=== PATIENT | female | born 1950 | race Caucasian/White ===

== ENCOUNTER → 2016-08-25 | Day surgery (SDC) | payer OTHER ==
[~2016-08-25] MED LIST: ASPI-482 PO; ATOR40TA59 PO; CELE100C PO; CYCL1DRO EACHEYE; DOXY50CA PO; FURO-69 PO; GLIP5TAB10 PO; IBUP200T77 PO; IV RINGERS,LACTATED 1000ML 1,000 ML IV SCH; LEVO125T5 PO; LISI-334 PO; METF10002 PO; METO-269 PO; OMEG1CAP30 PO; OMEG500C PO; OXYC-323 PO; POTA20TA4 PO; PROPOFOL 40 ML IV ONE; WARF5TAB7 PO
[2016-08-25 13:36] VITALS: BP 186/76
== END | disposition home or self-care (01) ==
LOC: ENDOS 11:17
PROVIDERS: ATTEND Internal Medicine Gastroenterology
DX: K64.0 First degree hemorrhoids (principal); K57.30 Diverticulosis of large intestine without perforation or abscess without bleeding; K29.50 Unspecified chronic gastritis without bleeding; E78.00 Pure hypercholesterolemia, unspecified; I10 Essential (primary) hypertension; E66.9 Obesity, unspecified; M19.90 Unspecified osteoarthritis, unspecified site; E11.9 Type 2 diabetes mellitus without complications; E03.9 Hypothyroidism, unspecified; Z98.51 Tubal ligation status; Z96.653 Presence of artificial knee joint, bilateral
CPT/HCPCS: 43235; 45378; G0500; J2704

== ENCOUNTER 2016-09-30 17:37 | Inpatient (IN) | payer OTHER ==
[~2016-09-30] VITALS: Ht 154.9 cm; Wt 109.9 kg
[~2016-09-30 17:37] MED LIST changes: -IV RINGERS,LACTATED 1000ML 1,000 ML IV SCH; +METF-620 PO; -METF10002 PO; -PROPOFOL 40 ML IV ONE
[2016-09-30 20:10] VITALS: BP 156/82
[2016-09-30] MEDS ORDERED: RIVA20TA2 PO (20:51)
[2016-09-30] MEDS ORDERED: METO-269 PO (20:51)
[2016-09-30] MEDS ORDERED: LOSA1TAB17 PO (20:52)
[2016-09-30] MEDS ORDERED: ASPI81TA2 PO (20:53)
[2016-09-30] MEDS ORDERED: LOTE5DRO2 EACHEYE (20:54)
[2016-09-30] MEDS ORDERED: CARB15DR3 EACHEYE (20:54)
[2016-09-30] MEDS ORDERED: PROCHLORPERAZINE 10 MG/2 ML VIAL. IV PRN (21:15)
[2016-09-30] MEDS ORDERED: ZOLPIDEM 5 MG TABLET. PO PRN (21:15)
[2016-09-30] MEDS ORDERED: ACETAMINOPHEN 325 MG TABLET. PO PRN (21:15)
[2016-09-30] MEDS ORDERED: LACTULOSE 20 GM/30 ML SOLUTION. PO PRN (21:15)
[2016-09-30] MEDS ORDERED: ONDANSETRON PF 4 MG/2 ML VIAL. IV PRN (21:15)
[2016-09-30] MEDS ORDERED: MAG HYDROX/ALUMINUM HYD/SIMETH 30 ML ORAL.SUSP PO PRN (21:15)
[2016-09-30] MEDS ORDERED: MAGNESIUM HYDROXIDE 2,400 MG/30 ML ORAL.SUSP. PO PRN (21:15)
[2016-09-30] MEDS ORDERED: BISACODYL 10 MG SUPP.RECT. PR PRN (21:15)
[2016-09-30] MEDS ORDERED: CALCIUM CARBONATE 500 MG TAB.CHEW PO PRN (21:15)
[2016-09-30] MEDS ORDERED: MORPHINE SULFATE 2 MG/ML DISP.SYRIN. IV PRN (21:15)
[2016-09-30] MEDS ORDERED: IV NORMAL SALINE 1000ML BAG 1,000 ML IV SCH (21:15)
[2016-09-30] MEDS ORDERED: PROCHLORPERAZINE 25 MG SUPP.RECT. PR PRN (21:15)
[2016-09-30] MEDS ORDERED: oxyCODONE IR 5 MG TABLET PO PRN ×2 (21:15)
[2016-09-30] MEDS: LOTEPREDNOL ETAB 0.5% OPHTH SUSPENSION 5ML BOTTLE. OU SCH (22:03)
[2016-09-30] MEDS: POLYVINYL ALCOHOL 1.4% OPHTH SOLUTION 15ML BOTTLE. OU SCH (22:03)
[2016-09-30] MEDS: cycloSPORINE 0.05% OPTH 1 DROP DROPERETTE OU SCH (22:03)
[2016-09-30] MEDS: METOPROLOL SUCC 24HR ER 50 MG TAB.ER.24H. PO SCH (22:05)
[2016-09-30] MEDS: ATORVASTATIN CALCIUM 20 MG TABLET PO SCH (22:05)
[2016-09-30 22:19] VITALS: BP 154/72
[2016-10-01 03:00] VITALS: BP 132/61
[2016-10-01 06:14] LABS: BASO % 1 % (0-3); EOS % 8 % (0-3); HEMATOCRIT 39.1 % (36.0-47.0); LYMPH # 1.6 x10^3/uL (1.0-4.8); LYMPH % 36 % (24-48); MEAN CORPUSCULAR HEMOGLOBIN 31 pg (25-35); MEAN CORPUSCULAR HGB CONC 33 g/dL (31-37); MEAN CORPUSCULAR VOLUME 94 fL (79-100); MONO % 15 % (0-9); NEUT % 40 % (31-73); PLATELET COUNT 203 x10^3/uL (140-400); RED BLOOD COUNT 4.16 x10^6/uL (3.50-5.40); RED CELL DISTRIBUTION WIDTH 12.9 % (11.5-14.5); WHITE BLOOD COUNT 4.3 x10^3/uL (4.0-11.0)
[2016-10-01] MEDS: LEVOTHYROXINE 125 MCG TABLET PO SCH (06:18)
[2016-10-01] MEDS: PANTOPRAZOLE IV PUSH 40 MG VIAL. IVP SCH (06:18)
[2016-10-01 06:25] LABS: INR 2.4 (0.8-1.1); PROTHROMBIN TIME PATIENT 24.8 SEC (11.7-14.0)
[2016-10-01 06:32] LABS: ALBUMIN 2.9 g/dL (3.4-5.0); ALBUMIN/GLOBULIN RATIO 0.7 (1.0-1.7); CALCIUM 8.7 mg/dL (8.5-10.1); GFR 55.5; MAGNESIUM 1.7 mg/dL (1.8-2.4); PHOSPHORUS 4.5 mg/dL (2.6-4.7); POTASSIUM 3.1 mmol/L (3.5-5.1); TOTAL BILIRUBIN 0.8 mg/dL (0.2-1.0); TOTAL PROTEIN 7.1 g/dL (6.4-8.2)
[2016-10-01 07:00] VITALS: BP 141/64
[2016-10-01] MEDS: hydroCHLOROthiazide 25 MG TABLET PO SCH (08:56)
[2016-10-01] MEDS: cycloSPORINE 0.05% OPTH 1 DROP DROPERETTE OU SCH ×2 (08:56→20:39)
[2016-10-01] MEDS: METOPROLOL SUCC 24HR ER 50 MG TAB.ER.24H. PO SCH ×2 (08:56→20:38)
[2016-10-01] MEDS: OMEGA-3 FATTY ACIDS/FISH OIL 1,000 MG CAPSULE. PO SCH (08:56)
[2016-10-01] MEDS: LOTEPREDNOL ETAB 0.5% OPHTH SUSPENSION 5ML BOTTLE. OU SCH ×2 (08:57→20:39)
[2016-10-01] MEDS: POTASSIUM CHLORIDE 10MEQ 100 ML IV SCH ×2 (10:30→11:30)
[2016-10-01 11:00] VITALS: BP 144/78
--- NOTE | 2016-10-01 12:41 | PDOC1 ---
History and Physical Past Medical History Cardiovascular: HTN, Hyperlipidemia Psych: Depression Endocrine: Diabetes, Hypothyroidism Family History Family History: Cancer, Diabetes, Heart Disease Social History ALCOHOL: none Drugs: None Current Medications Current Medications Current Medications Medications (Trade) Dose Ordered Sig/Syd Start Time Stop Time Status Last Admin Dose Admin Acetaminophen (Tylenol) 650 mg PRN Q6HRS PRN 09/30/16 21:15 Al Hydroxide/Mg Hydroxide (Mylanta Plus Xs) 30 ml PRN Q3HRS PRN 09/30/16 21:15 Artificial Tears (Artificial Tears) 1 drop HS 09/30/16 21:30 09/30/16 22:03 1 DROP Atorvastatin Calcium (Lipitor) 20 mg HS 09/30/16 21:30 09/30/16 22:05 20 MG Bisacodyl (Dulcolax Supp) 10 mg PRN DAILY PRN 09/30/16 21:15 Calcium Carbonate/ Glycine (Tums) 500 mg PRN Q3HRS PRN 09/30/16 21:15 Cyclosporine (Restasis) 1 drop BID 09/30/16 21:30 10/01/16 08:56 1 DROP Fish Oil (Fish Oil) 1,000 mg DAILY 10/01/16 09:00 10/01/16 08:56 1,000 MG Hydrochlorothiazide (Hydrodiuril) 25 mg DAILY 10/01/16 09:00 10/01/16 08:56 25 MG Lactulose 20 gm PRN Q12HR PRN 09/30/16 21:15 Levothyroxine Sodium (Synthroid) 125 mcg DAILY06 10/01/16 06:00 10/01/16 06:18 125 MCG Loteprednol Etabonate (Lotemax) 1 drop BID 09/30/16 21:30 10/01/16 08:57 1 DROP Magnesium Hydroxide (Milk Of Magnesia) 2,400 mg PRN Q12HR PRN 09/30/16 21:15 Metoprolol Succinate (Toprol Xl) 50 mg BID 09/30/16 21:30 10/01/16 08:56 50 MG Morphine Sulfate 1 mg PRN Q1HR PRN 09/30/16 21:15 Ondansetron HCl (Zofran) 4 mg PRN Q6HRS PRN 09/30/16 21:15 Oxycodone HCl (Roxicodone) 5 mg PRN Q4HRS PRN 09/30/16 21:15 Pantoprazole Sodium (Protonix Vial) 40 mg DAILYAC 10/01/16 07:30 10/01/16 06:18 40 MG Potassium Chloride 100 ml @ 100 mls/hr Q1H 10/01/16 10:30 10/01/16 12:29 DC 10/01/16 10:30 100 MLS/HR Prochlorperazine (Compazine) 25 mg PRN Q12HR PRN 09/30/16 21:15 Prochlorperazine Edisylate (Compazine) 10 mg PRN Q6HRS PRN 09/30/16 21:15 Sodium Chloride 1,000 ml @ 80 mls/hr [id number] 09/30/16 21:15 10/01/16 09:44 DC 09/30/16 22:05 80 MLS/HR Zolpidem Tartrate (Ambien) 5 mg PRN QHS PRN 09/30/16 21:15 Allergies Allergies Allergies Coded Allergies Type Severity Reaction Last Updated Verified niacin Adverse Reaction Severe TREMORS 08/25/16 Yes procaine Adverse Reaction Severe GUMS SWELLED AFTER DENTAL NOVOCAINE 08/25/16 Yes ROS Review of System CONSTITUTIONAL: No fever or chills EYES: No recent changes SKIN: No rash or itching CARDIOVASCULAR: No chest pain, syncope, palpitations, or edema RESPIRATORY: No SOB or cough GASTROINTESTINAL: No nausea, vomiting or abdominal pain but blood in stools, clotted and bright NEUROLOGICAL: No headaches or weakness ENDOCRINE: No cold or heat intolerance GENITOURINARY: No urgency or frequency of urination MUSCULOSKELETAL: No back pain or joint pain LYMPHATICS: No enlarged lymph nodes PSYCHIATRIC: No anxiety or depression Physical Exam Physical Exam GEN.: No apparent distress. Alert and oriented. HEENT: Head is normocephalic, atraumatic NECK: Supple. LUNGS: Clear to auscultation. HEART: RRR, S1, S2 present. Peripheral pulses intact ABDOMEN: Soft, nontender. Positive bowel sounds. EXTREMITIES: Without any cyanosis. NEUROLOGIC: Normal speech, normal tone PSYCHIATRIC: Normal affect, normal mood. SKIN: No ulcerations Vitals Vitals Vital Signs Date Time Temp Pulse Resp B/P (MAP) Pulse Ox O2 Delivery O2 Flow Rate FiO2 10/01/16 11:00 96.8 66 19 144/78 (100) 96 Room Air 96.8 Labs Labs Laboratory Tests Test 10/01/16 05:15 White Blood Count 4.3 x10^3/uL (4.0-11.0) Red Blood Count 4.16 x10^6/uL (3.50-5.40) Hemoglobin 13.0 g/dL (12.0-15.5) Hematocrit 39.1 % (36.0-47.0) Mean Corpuscular Volume 94 fL (79-100) Mean Corpuscular Hemoglobin 31 pg (25-35) Mean Corpuscular Hemoglobin Concent 33 g/dL (31-37) Red Cell Distribution Width 12.9 % (11.5-14.5) Platelet Count 203 x10^3/uL (140-400) Neutrophils (%) (Auto) 40 % (31-73) Lymphocytes (%) (Auto) 36 % (24-48) Monocytes (%) (Auto) 15 % (0-9) Eosinophils (%) (Auto) 8 % (0-3) Basophils (%) (Auto) 1 % (0-3) Neutrophils # (Auto) 1.7 x10^3uL (1.8-7.7) Lymphocytes # (Auto) 1.6 x10^3/uL (1.0-4.8) Monocytes # (Auto) 0.7 x10^3/uL (0.0-1.1) Eosinophils # (Auto) 0.3 x10^3/uL (0.0-0.7) Basophils # (Auto) 0.0 x10^3/uL (0.0-0.2) Prothrombin Time 24.8 SEC (11.7-14.0) Prothromb Time International Ratio 2.4 (0.8-1.1) Sodium Level 144 mmol/L (136-145) Potassium Level 3.1 mmol/L (3.5-5.1) Chloride Level 105 mmol/L (98-107) Carbon Dioxide Level 28 mmol/L (21-32) Anion Gap 11 (6-14) Blood Urea Nitrogen 20 mg/dL (7-20) Creatinine 1.0 mg/dL (0.6-1.0) Estimated GFR (Cockcroft-Gault) 55.5 BUN/Creatinine Ratio 20 (6-20) Glucose Level 88 mg/dL (70-99) Calcium Level 8.7 mg/dL (8.5-10.1) Phosphorus Level 4.5 mg/dL (2.6-4.7) Magnesium Level 1.7 mg/dL (1.8-2.4) Total Bilirubin 0.8 mg/dL (0.2-1.0) Aspartate Amino Transf (AST/SGOT) 39 U/L (15-37) Alanine Aminotransferase (ALT/SGPT) 37 U/L (14-59) Alkaline Phosphatase 65 U/L (46-116) Total Protein 7.1 g/dL (6.4-8.2) Albumin 2.9 g/dL (3.4-5.0) Albumin/Globulin Ratio 0.7 (1.0-1.7) Laboratory Tests Test 10/01/16 05:15 White Blood Count 4.3 x10^3/uL (4.0-11.0) Red Blood Count 4.16 x10^6/uL (3.50-5.40) Hemoglobin 13.0 g/dL (12.0-15.5) Hematocrit 39.1 % (36.0-47.0) Mean Corpuscular Volume 94 fL (79-100) Mean Corpuscular Hemoglobin 31 pg (25-35) Mean Corpuscular Hemoglobin Concent 33 g/dL (31-37) Red Cell Distribution Width 12.9 % (11.5-14.5) Platelet Count 203 x10^3/uL (140-400) Neutrophils (%) (Auto) 40 % (31-73) Lymphocytes (%) (Auto) 36 % (24-48) Monocytes (%) (Auto) 15 % (0-9) Eosinophils (%) (Auto) 8 % (0-3) Basophils (%) (Auto) 1 % (0-3) Neutrophils # (Auto) 1.7 x10^3uL (1.8-7.7) Lymphocytes # (Auto) 1.6 x10^3/uL (1.0-4.8) Monocytes # (Auto) 0.7 x10^3/uL (0.0-1.1) Eosinophils # (Auto) 0.3 x10^3/uL (0.0-0.7) Basophils # (Auto) 0.0 x10^3/uL (0.0-0.2) Prothrombin Time 24.8 SEC (11.7-14.0) Prothromb Time International Ratio 2.4 (0.8-1.1) Sodium Level 144 mmol/L (136-145) Potassium Level 3.1 mmol/L (3.5-5.1) Chloride Level 105 mmol/L (98-107) Carbon Dioxide Level 28 mmol/L (21-32) Anion Gap 11 (6-14) Blood Urea Nitrogen 20 mg/dL (7-20) Creatinine 1.0 mg/dL (0.6-1.0) Estimated GFR (Cockcroft-Gault) 55.5 BUN/Creatinine Ratio 20 (6-20) Glucose Level 88 mg/dL (70-99) Calcium Level 8.7 mg/dL (8.5-10.1) Phosphorus Level 4.5 mg/dL (2.6-4.7) Magnesium Level 1.7 mg/dL (1.8-2.4) Total Bilirubin 0.8 mg/dL (0.2-1.0) Aspartate Amino Transf (AST/SGOT) 39 U/L (15-37) Alanine Aminotransferase (ALT/SGPT) 37 U/L (14-59) Alkaline Phosphatase 65 U/L (46-116) Total Protein 7.1 g/dL (6.4-8.2) Albumin 2.9 g/dL (3.4-5.0) Albumin/Globulin Ratio 0.7 (1.0-1.7) VTE Prophylaxis Ordered VTE Prophylaxis Devices: Contraindicated VTE Pharmacological Prophylaxi: Contraindicated WENDY ROBLEDO MD October 01, 2016 12:41
[2016-10-01] MEDS ORDERED: MAGNESIUM SULFATE 2GM 50 ML IV ONE (13:00)
[2016-10-01 14:06] LABS: HEMATOCRIT 40.8 % (36.0-47.0); HEMOGLOBIN 13.7 g/dL (12.0-15.5); RED BLOOD COUNT 4.34 x10^6/uL (3.50-5.40)
[2016-10-01 19:00] VITALS: BP 154/77
--- NOTE | 2016-10-01 19:27 | RAD ---
Radionuclide GI bleeding scan, 10/01/2016: HISTORY Bloody stools The study was performed utilizing 27 millicuries of technetium 99 M and a labeled red blood cell technique. Imaging obtained out to 1 hour shows no abnormal accumulation of activity in the abdomen or pelvis. Normal urinary tract activity is seen. IMPRESSION Negative radionuclide GI bleeding scan. Electronically signed by: Yifan Pandya MD (October 01, 2016 16:11:56)
[2016-10-01] MEDS: ATORVASTATIN CALCIUM 20 MG TABLET PO SCH (20:38)
[2016-10-01] MEDS: POLYVINYL ALCOHOL 1.4% OPHTH SOLUTION 15ML BOTTLE. OU SCH (20:39)
[2016-10-01 22:16] LABS: HEMATOCRIT 40.2 % (36.0-47.0); HEMOGLOBIN 13.7 g/dL (12.0-15.5); RED BLOOD COUNT 4.32 x10^6/uL (3.50-5.40); WHITE BLOOD COUNT 3.9 x10^3/uL (4.0-11.0)
[2016-10-01 23:00] VITALS: BP 169/68
--- NOTE | 2016-10-02 01:42 | CONS ---
DATE OF CONSULTATION: 10/01/2016 REQUESTING PHYSICIAN: Dr. Katz. PRIMARY CARE PHYSICIAN: Dr. Mariel Garcia. REASON FOR CONSULTATION: GI bleed. HISTORY OF PRESENT ILLNESS: This is a 65-year-old female who was transferred from [facility] [place] after having a GI bleed. She reports blood clots in her bowel movement. She had an EGD and colonoscopy by Dr. Heaton on 08/29/2016. She reports that she was told she did not need a colonoscopy for 10 more years. Otherwise, she has been told that she has gallstones and has a sluggish stomach on gastric emptying. She has been scheduled for gallbladder surgery with Dr. Waters. She is scheduled for a 2-day stress test this Monday or by ____. She states that she was placed on Xarelto for a blood clot in her lung. Shortly after, she began to notice clots in her bowel movements. She states that she has a bowel movement with every meal. This is unchanged from previous. Otherwise, she denies any nausea or vomiting. She states that she has generalized abdominal pain at the site of her hernia. PAST MEDICAL HISTORY: Significant for: 1. TIA. 2. Coronary artery disease. 3. Cardiac characterization 4. Hypercholesterolemia. 5. Hypertension. 6. Sleep apnea. 7. Diverticulosis. 8. Gallbladder disease. 9. Obesity. 10. Tubal ligation. 11. Carpal tunnel syndrome. 12. ____ surgery. 13. Joint replacement. 14. Down syndrome. MEDICATIONS: Currently she is on: 1. Potassium. 2. Hydrochlorothiazide. 3. Fish oil. 4. Protonix. 5. Levothyroxine. 6. Toprol. 7. Artificial tears. 8. Lotemax. 9. Restasis. 10. Lipitor. 11. Dulcolax. 12. Lactulose. 13. Milk of magnesia. 14. Tylenol. 15. Roxicodone 16. Morphine. 17. Ambien. 18. Tums. 19. Mylanta. 20. Compazine. 21. Zofran. ALLERGIES: 1. NIACIN. 2. PROCAINE. PHYSICAL EXAMINATION: VITAL SIGNS: Temperature is 96.8, blood pressure 144/78, heart rate 66. GENERAL: She is an obese female in no apparent distress. HEENT: Oropharynx is clear. CARDIOVASCULAR: S1, S2. LUNGS: Have decreased breath sounds anteriorly. ABDOMEN: Does have normoactive bowel sounds, is soft and she is diffusely tender to palpation. EXTREMITIES: No edema. NEUROLOGIC: She is awake, alert and oriented x 3. LABORATORY DATA: White blood cell count of 4.2 with a hemoglobin of 13, MCV of 94, platelets are at 203. Chemistries show an elevated AST at 39, but otherwise unrevealing. Her potassium is low at 3.1. Had no recent imaging. ASSESSMENT AND PLAN: GI bleed: She reports clots in her bowel movements shortly after starting Xarelto. She had both upper and lower endoscopy by Dr. Heaton on 08/29/2016. She states that these were relatively unrevealing. At this time, I will go ahead and order bleeding scan to further evaluate. ____ hold Xarelto if her hemoglobin drops precipitously. Thank you for allowing me, Dr. Heaton to participate in the care of this patient. MICHELL HEATON MD DR: CAMRON/morgan JOB#: [id number] / [id number] MARIEL Goetz MD
--- NOTE | 2016-10-02 02:00 | HP ---
ADMIT DATE: 10/01/2016 CHIEF COMPLAINT: Blood in the stool and lower GI bleeding, questionable. HISTORY OF PRESENT ILLNESS: A 65-year-old female patient who was recently diagnosed with pulmonary embolus and she was started on a blood thinner, Eliquis; however; she was noted to have bright red blood in her stool yesterday and she was transferred to hospital for continued care. Reportedly, the patient was diagnosed nearly one month ago about PE and later she had evaluation by GI, EGD and colonoscopy, both were negative and no biopsies were taken (no official report seen). Also, she was evaluated by Cardiology for her shortness of breath. She is about to get some stress test in the next couple of days. She denies any hematemesis, but she noted bright-cloted blood two times, one time today and yesterday. She denies any fever, chills or abdominal pain. No nausea or vomiting. No weight gain. PAST MEDICAL HISTORY: Please see my electronic H and P. REVIEW OF SYSTEMS: Please see my electronic H and P. PHYSICAL EXAMINATION: Please see my electronic H and P. LABORATORY FINDINGS: CBC within normal limits. Hemoglobin is 13.0. Chemistry within normal limits except magnesium 1.7. Potassium 3.1. Coagulation panel; INR is 2.4, PT is 24.8. Imaging studies not done. ASSESSMENT AND PLAN: 1. Rectal bleed, unclear etiology, questionable lower gastrointestinal bleed. 2. Hypokalemia. 3. Hypomagnesemia. 4. Recent history of pulmonary embolus on Eliquis. 5. Hypertension. 6. Hyperlipidemia. 7. Diabetes mellitus. PLAN: 1. The patient is scheduled to get nuclear medicine scan today, meanwhile we will continue to monitor her hemoglobin. Currently she is on IV Protonix drip. 2. Monitor hemoglobin q.8 hours. If the patient's hemoglobin drops to less than 8, will transfuse one or two units of blood based on the patient's clinical condition. 3. Magnesium and potassium had been replaced. 4. Holding Eliquis at this time. 5. Continue home medications, reviewed and reconciled. 6. Plan discussed with the patient and family members at bedside. All questions were answered. 7. Anticipated discharge based on clinical improvement and sub-speciality input. 8. Gastroenterology had been consulted. WENDY ROBLEDO MD DR: Falguni JOB#: [id number] / [id number] DARCY
[2016-10-02 03:00] VITALS: BP 118/76
[2016-10-02 04:35] LABS: HEMATOCRIT 38.9 % (36.0-47.0); HEMOGLOBIN 13.5 g/dL (12.0-15.5); RED BLOOD COUNT 4.27 x10^6/uL (3.50-5.40); RED CELL DISTRIBUTION WIDTH 12.7 % (11.5-14.5); WHITE BLOOD COUNT 4.1 x10^3/uL (4.0-11.0)
[2016-10-02] MEDS: LEVOTHYROXINE 125 MCG TABLET PO SCH (05:40)
[2016-10-02 07:00] VITALS: BP 93/38
[2016-10-02] MEDS: hydroCHLOROthiazide 25 MG TABLET PO SCH (08:53)
[2016-10-02] MEDS: OMEGA-3 FATTY ACIDS/FISH OIL 1,000 MG CAPSULE. PO SCH (08:53)
[2016-10-02] MEDS: METOPROLOL SUCC 24HR ER 50 MG TAB.ER.24H. PO SCH (08:53)
[2016-10-02] MEDS: LOTEPREDNOL ETAB 0.5% OPHTH SUSPENSION 5ML BOTTLE. OU SCH (08:54)
[2016-10-02] MEDS: POLYVINYL ALCOHOL 1.4% OPHTH SOLUTION 15ML BOTTLE. OU SCH (08:54)
[2016-10-02] MEDS: PANTOPRAZOLE IV PUSH 40 MG VIAL. IVP SCH (08:54)
[2016-10-02] MEDS: cycloSPORINE 0.05% OPTH 1 DROP DROPERETTE OU SCH (08:55)
--- NOTE | 2016-10-02 09:27 | PDOC3 ---
Discharge Summary Visit Information Date of Admission: October 01, 2016 Date of Discharge: October 02, 2016 Admitting Diagnosis Comment: ASSESSMENT AND PLAN: 1. Rectal bleed, unclear etiology, questionable lower gastrointestinal bleed. 2. Hypokalemia. 3. Hypomagnesemia. 4. Recent history of pulmonary embolus on Xarelto/eliquis 5. Hypertension. 6. Hyperlipidemia. 7. Diabetes mellitus. Brief Hospital Course Allergies Allergies Coded Allergies Type Severity Reaction Last Updated Verified niacin Adverse Reaction Severe TREMORS 08/25/16 Yes procaine Adverse Reaction Severe GUMS SWELLED AFTER DENTAL NOVOCAINE 08/25/16 Yes Vital Signs Vital Signs Date Time Temp Pulse Resp B/P (MAP) Pulse Ox O2 Delivery O2 Flow Rate FiO2 10/02/16 08:53 62 125/57 10/02/16 07:00 96.3 20 96 Room Air 96.3 Lab Results Laboratory Tests Test 10/01/16 05:15 10/01/16 13:55 10/01/16 22:05 10/02/16 04:00 White Blood Count 4.3 x10^3/uL (4.0-11.0) 4.0 x10^3/uL (4.0-11.0) 3.9 x10^3/uL (4.0-11.0) 4.1 x10^3/uL (4.0-11.0) Red Blood Count 4.16 x10^6/uL (3.50-5.40) 4.34 x10^6/uL (3.50-5.40) 4.32 x10^6/uL (3.50-5.40) 4.27 x10^6/uL (3.50-5.40) Hemoglobin 13.0 g/dL (12.0-15.5) 13.7 g/dL (12.0-15.5) 13.7 g/dL (12.0-15.5) 13.5 g/dL (12.0-15.5) Hematocrit 39.1 % (36.0-47.0) 40.8 % (36.0-47.0) 40.2 % (36.0-47.0) 38.9 % (36.0-47.0) Mean Corpuscular Volume 94 fL (79-100) 94 fL (79-100) 93 fL (79-100) 91 fL ( 79-100) Mean Corpuscular Hemoglobin 31 pg (25-35) 32 pg (25-35) 32 pg (25-35) 32 pg ( 25-35) Mean Corpuscular Hemoglobin Concent 33 g/dL (31-37) 34 g/dL (31-37) 34 g/dL (31-37) 35 g/dL (31-37) Red Cell Distribution Width 12.9 % (11.5-14.5) 13.0 % (11.5-14.5) 13.0 % (11.5-14.5) 12.7 % (11.5-14.5) Platelet Count 203 x10^3/uL (140-400) 203 x10^3/uL (140-400) 206 x10^3/uL (140-400) 211 x10^3/uL (140-400) Neutrophils (%) (Auto) 40 % (31-73) Lymphocytes (%) (Auto) 36 % (24-48) Monocytes (%) (Auto) 15 % (0-9) Eosinophils (%) (Auto) 8 % (0-3) Basophils (%) (Auto) 1 % (0-3) Neutrophils # (Auto) 1.7 x10^3uL (1.8-7.7) Lymphocytes # (Auto) 1.6 x10^3/uL (1.0-4.8) Monocytes # (Auto) 0.7 x10^3/uL (0.0-1.1) Eosinophils # (Auto) 0.3 x10^3/uL (0.0-0.7) Basophils # (Auto) 0.0 x10^3/uL (0.0-0.2) Prothrombin Time 24.8 SEC (11.7-14.0) Prothromb Time International Ratio 2.4 (0.8-1.1) Sodium Level 144 mmol/L (136-145) Potassium Level 3.1 mmol/L (3.5-5.1) Chloride Level 105 mmol/L (98-107) Carbon Dioxide Level 28 mmol/L (21-32) Anion Gap 11 (6-14) Blood Urea Nitrogen 20 mg/dL (7-20) Creatinine 1.0 mg/dL (0.6-1.0) Estimated GFR (Cockcroft-Gault) 55.5 BUN/Creatinine Ratio 20 (6-20) Glucose Level 88 mg/dL (70-99) Calcium Level 8.7 mg/dL (8.5-10.1) Phosphorus Level 4.5 mg/dL (2.6-4.7) Magnesium Level 1.7 mg/dL (1.8-2.4) Total Bilirubin 0.8 mg/dL (0.2-1.0) Aspartate Amino Transf (AST/SGOT) 39 U/L (15-37) Alanine Aminotransferase (ALT/SGPT) 37 U/L (14-59) Alkaline Phosphatase 65 U/L (46-116) Total Protein 7.1 g/dL (6.4-8.2) Albumin 2.9 g/dL (3.4-5.0) Albumin/Globulin Ratio 0.7 (1.0-1.7) Laboratory Tests Test 10/01/16 13:55 10/01/16 22:05 10/02/16 04:00 White Blood Count 4.0 x10^3/uL (4.0-11.0) 3.9 x10^3/uL (4.0-11.0) 4.1 x10^3/uL (4.0-11.0) Red Blood Count 4.34 x10^6/uL (3.50-5.40) 4.32 x10^6/uL (3.50-5.40) 4.27 x10^6/uL (3.50-5.40) Hemoglobin 13.7 g/dL (12.0-15.5) 13.7 g/dL (12.0-15.5) 13.5 g/dL (12.0-15.5) Hematocrit 40.8 % (36.0-47.0) 40.2 % (36.0-47.0) 38.9 % (36.0-47.0) Mean Corpuscular Volume 94 fL (79-100) 93 fL (79-100) 91 fL (79-100) Mean Corpuscular Hemoglobin 32 pg (25-35) 32 pg (25-35) 32 pg (25-35) Mean Corpuscular Hemoglobin Concent 34 g/dL (31-37) 34 g/dL (31-37) 35 g/dL (31-37) Red Cell Distribution Width 13.0 % (11.5-14.5) 13.0 % (11.5-14.5) 12.7 % (11.5-14.5) Platelet Count 203 x10^3/uL (140-400) 206 x10^3/uL (140-400) 211 x10^3/uL (140-400) Brief Hospital Course Ms. Bliss is a 65 old female recently on coumadin (eliquis) for PE (diagnosed 3 weeks ago), but 1 day [employer] [facility], hemodynamically stable, no recurrence, First episode PE, told to be on it maybe 3-6 mos,. PLanned for MPI OP by cards prior to contemplated elective GS for cholecystectomy and some bowel sx? for chronic diarrhea and hernia repair, In any case, no more bleeding , will try GI soft and if no recurrence and cleared by GI ok for home and ff up rest of her planned tests as OP,. NM scan was neg, CBC q8 - was never anemic Dc 34 mins > 70% time in room discussing plan etc Dw RN Pt seen and examined COnsultTs; gS proc: none DispO; home Discharge Information Condition at Discharge: Improved, Stable Disposition/Orders: D/C to Home Scheduled Aspirin (Aspirin), 1 TAB PO DAILY, (Reported) Atorvastatin Calcium (Atorvastatin Calcium), 20 MG PO HS, (Reported) Carboxymethylcellulos/Glycerin (Refresh Optive Eye Drops), 1 DROP EACHEYE HS, ( Reported) Cyclosporine (Restasis), 1 DROP EACHEYE BID, (Reported) Levothyroxine Sodium (Levothyroxine Sodium), 125 MCG PO DAILYAC, (Reported) Losartan/Hydrochlorothiazide (Losartan-Hctz 100-25 Mg Tab), Unknown Dose PO DAILY, (Reported) Loteprednol Etabonate (Lotemax), 1 DROP EACHEYE BID, (Reported) Metoprolol Succinate (Toprol Xl), 1 TAB PO BID, (Reported) Carver-3 Fatty Acids (Fish Oil), 1,000 MG PO DAILY, (Reported) Rivaroxaban (Xarelto), 20 MG PO DAILY, (Reported) Discontinued Medications Celecoxib (Celebrex), 1 CAP PO DAILY, (Reported) Doxycycline Hyclate (Doxycycline Hyclate), 1 CAP PO BID, (Reported) Furosemide (Lasix), 20 MG PO DAILY, (Reported) Ibuprofen (Ibuprofen), 200 MG PO DAILY PRN for INFLAMMATION, (Reported) Lisinopril (Lisinopril), 20 MG PO DAILY, (Reported) KERRI CANO MD October 02, 2016 09:27
[2016-10-02 10:00] VITALS: BP 109/45
--- NOTE | 2016-10-02 12:23 | PDOC ---
Subjective: Subjective: no bleeding. Hgb up today. Bleed scan neg Objective: Vital Signs: Vital Signs Date Time Temp Pulse Resp B/P (MAP) Pulse Ox O2 Delivery O2 Flow Rate FiO2 10/02/16 10:00 97.9 60 18 109/45 (66) 97 Room Air 97.9 Labs: Laboratory Tests Test 10/01/16 13:55 10/01/16 22:05 10/02/16 04:00 White Blood Count 4.0 x10^3/uL (4.0-11.0) 3.9 x10^3/uL (4.0-11.0) 4.1 x10^3/uL (4.0-11.0) Red Blood Count 4.34 x10^6/uL (3.50-5.40) 4.32 x10^6/uL (3.50-5.40) 4.27 x10^6/uL (3.50-5.40) Hemoglobin 13.7 g/dL (12.0-15.5) 13.7 g/dL (12.0-15.5) 13.5 g/dL (12.0-15.5) Hematocrit 40.8 % (36.0-47.0) 40.2 % (36.0-47.0) 38.9 % (36.0-47.0) Mean Corpuscular Volume 94 fL (79-100) 93 fL (79-100) 91 fL (79-100) Mean Corpuscular Hemoglobin 32 pg (25-35) 32 pg (25-35) 32 pg (25-35) Mean Corpuscular Hemoglobin Concent 34 g/dL (31-37) 34 g/dL (31-37) 35 g/dL (31-37) Red Cell Distribution Width 13.0 % (11.5-14.5) 13.0 % (11.5-14.5) 12.7 % (11.5-14.5) Platelet Count 203 x10^3/uL (140-400) 206 x10^3/uL (140-400) 211 x10^3/uL (140-400) Physical Exam: Physical Exam: GEN: NAD HEENT: OP clear CV: S1S2 without murmurs, rubs, or gallops RESP: CTAB without wheezing, rhonchi, or crackles ABD: NABS, SNT/ND EXT: No edema NEURO: AAO x 3 Assessment & Plan: Assessment : 1) GIB: resolved. Hgb increased off Xarelto. bleed scna neg Plan: okay for d/c. f/u with dr Heaton Problems: ELEUTERIO CARRILLO MD October 02, 2016 12:23
[2016-10-02 14:17] LABS: HEMOGLOBIN 13.1 g/dL (12.0-15.5); RED BLOOD COUNT 4.16 x10^6/uL (3.50-5.40); RED CELL DISTRIBUTION WIDTH 13.1 % (11.5-14.5); WHITE BLOOD COUNT 3.5 x10^3/uL (4.0-11.0)
--- NOTE | 2016-10-03 15:41 | CONS ---
DATE OF CONSULTATION: 10/01/2016 REQUESTING PHYSICIAN: Dr. Katz. PRIMARY CARE PHYSICIAN: Dr. Mariel Garcia. REASON FOR CONSULTATION: GI bleed. HISTORY OF PRESENT ILLNESS: This is a 65-year-old female who was transferred from [facility] [place] having a GI bleed. She reports blood clots in her bowel movement. She had an EGD and colonoscopy by Dr. Heaton on 08/29/2016. She reports that she was told she did not need a colonoscopy for 10 more years. Otherwise, she has been told that she has gallstones and has a sluggish stomach on gastric emptying. She has been scheduled for gallbladder surgery with Dr. Waters. She is scheduled for a 2-day stress test this Monday or by ____. She states that she was placed on Xarelto for a blood clot in her lung. Shortly after, she began to notice clots in her bowel movements. She states that she has a bowel movement with every meal. This is unchanged from previous. Otherwise, she denies any nausea or vomiting. She states that she has generalized abdominal pain at the site of her hernia. PAST MEDICAL HISTORY: Significant for: 1. TIA. 2. Coronary artery disease. 3. Cardiac characterization 4. Hypercholesterolemia. 5. Hypertension. 6. Sleep apnea. 7. Diverticulosis. 8. Gallbladder disease. 9. Obesity. 10. Tubal ligation. 11. Carpal tunnel syndrome. 12. ____ surgery. 13. Joint replacement. 14. Down syndrome. MEDICATIONS: Currently she is on: 1. Potassium. 2. Hydrochlorothiazide. 3. Fish oil. 4. Protonix. 5. Levothyroxine. 6. Toprol. 7. Artificial tears. 8. Lotemax. 9. Restasis. 10. Lipitor. 11. Dulcolax. 12. Lactulose. 13. Milk of magnesia. 14. Tylenol. 15. Roxicodone 16. Morphine. 17. Ambien. 18. Tums. 19. Mylanta. 20. Compazine. 21. Zofran. ALLERGIES: 1. NIACIN. 2. PROCAINE. PHYSICAL EXAMINATION: VITAL SIGNS: Temperature is 96.8, blood pressure 144/78, heart rate 66. GENERAL: She is an obese female in no apparent distress. HEENT: Oropharynx is clear. CARDIOVASCULAR: S1, S2. LUNGS: Have decreased breath sounds anteriorly. ABDOMEN: Does have normoactive bowel sounds, is soft and she is diffusely tender to palpation. EXTREMITIES: No edema. NEUROLOGIC: She is awake, alert and oriented x 3. LABORATORY DATA: White blood cell count of 4.2 with a hemoglobin of 13, MCV of 94, platelets are at 203. Chemistries show an elevated AST at 39, but otherwise unrevealing. Her potassium is low at 3.1. Had no recent imaging. ASSESSMENT AND PLAN: GI bleed: She reports clots in her bowel movements shortly after starting Xarelto. She had both upper and lower endoscopy by Dr. Heaton on 08/29/2016. She states that these were relatively unrevealing. At this time, I will go ahead and order bleeding scan to further evaluate. ____ hold Xarelto if her hemoglobin drops precipitously. Thank you for allowing me, Dr. Heaton to participate in the care of this patient. ELEUTERIO CARRILLO MD DR: CAMRON/morgan JOB#: [id number] / [id number] MARIEL Goetz MD
== END 2016-10-02 15:38 | disposition home or self-care (01) | DRG 378 ==
LOC: 5 NORTH 20:32
PROVIDERS: ADMIT Internal Medicine; ATTEND Internal Medicine
DX: K92.2 Gastrointestinal hemorrhage, unspecified (principal); Z68.42 Body mass index [BMI] 45.0-49.9, adult; E78.5 Hyperlipidemia, unspecified; E83.42 Hypomagnesemia; E87.6 Hypokalemia; I10 Essential (primary) hypertension; I25.10 Atherosclerotic heart disease of native coronary artery without angina pectoris; F32.9 Major depressive disorder, single episode, unspecified; G56.00 Carpal tunnel syndrome, unspecified upper limb; K57.90 Diverticulosis of intestine, part unspecified, without perforation or abscess without bleeding; E66.9 Obesity, unspecified; E03.9 Hypothyroidism, unspecified; E78.00 Pure hypercholesterolemia, unspecified; E11.9 Type 2 diabetes mellitus without complications; G47.30 Sleep apnea, unspecified; K80.20 Calculus of gallbladder without cholecystitis without obstruction; K52.9 Noninfective gastroenteritis and colitis, unspecified; Z98.51 Tubal ligation status; Z88.8 Allergy status to other drugs, medicaments and biological substances; Q90.9 Down syndrome, unspecified; Z86.711 Personal history of pulmonary embolism; Z86.73 Personal history of transient ischemic attack (TIA), and cerebral infarction without residual deficits; Z83.3 Family history of diabetes mellitus; Z79.891 Long term (current) use of opiate analgesic; Z79.899 Other long term (current) drug therapy; Z85.9 Personal history of malignant neoplasm, unspecified; Z82.49 Family history of ischemic heart disease and other diseases of the circulatory system
CPT/HCPCS: 36415; 78278; 80053; 83735; 84100; 85027; 85610; 96374; A9560; C9113; J3480; J7030; J7060

== ENCOUNTER 2016-12-01 05:44 | Inpatient (IN) | payer OTHER ==
[~2016-12-01] VITALS: Ht 157.5 cm; Wt 111.1 kg
[2016-12-01] VITALS (11 sets, daily range): BP systolic 124–171; BP diastolic 54–75
[~2016-12-01 05:44] MED LIST changes: +ASPI-630 PO; +CARB15DR3 EACHEYE; +LOSA1TAB17 PO; +LOTE5DRO2 EACHEYE; +RIVA20TA2 PO
[2016-12-01] MEDS ORDERED: PROCHLORPERAZINE 10 MG/2 ML VIAL. IV PRN (07:00)
[2016-12-01] MEDS ORDERED: MORPHINE SULFATE 2 MG/ML DISP.SYRIN. IV PRN ×2 (07:00→10:15)
[2016-12-01] MEDS ORDERED: IV RINGERS,LACTATED 1000ML 1,000 ML IV SCH (07:00)
[2016-12-01] MEDS ORDERED: ONDANSETRON PF 4 MG/2 ML VIAL. IV PRN ×2 (07:00→10:15)
[2016-12-01] MEDS ORDERED: LIDOCAINE 1% 1 ML SYRINGE. ID PRN (07:00)
[2016-12-01] MEDS ORDERED: fentaNYL PF VIAL 100 MCG/2 ML VIAL IV PRN ×2 (07:00)
[2016-12-01] MEDS ORDERED: HYDROmorphone 2 MG/ML VIAL IV PRN (07:00)
[2016-12-01] MEDS ORDERED: SURGICEL HEMOSTAT 4X8 EACH. ONE (07:15)
[2016-12-01] MEDS ORDERED: IOHEXOL 300 MG/ML 50 ML VIAL. ONE (07:15)
[2016-12-01] MEDS ORDERED: BUPIVACAINE-EPI 0.25%-1:200000 50 ML VIAL. ONE (07:15)
[2016-12-01] MEDS ORDERED: DEXAMETHASONE SOD PHOS 20 MG/5 ML VIAL. ONE (08:29)
[2016-12-01] MEDS ORDERED: fentaNYL PF VIAL 100 MCG/2 ML VIAL ONE (08:29)
[2016-12-01] MEDS ORDERED: PROPOFOL 20 ML IV ONE (08:29)
[2016-12-01] MEDS ORDERED: LIDOCAINE 2% PF Vial for OR 5 ML VIAL. ONE (08:29)
[2016-12-01] MEDS ORDERED: MIDAZOLAM HCL/PF 2 MG/2 ML VIAL. ONE (08:29)
[2016-12-01] MEDS ORDERED: ROCURONIUM 50 MG/5 ML VIAL. ONE (08:30)
[2016-12-01 08:31] LABS: INR 1.3 (0.8-1.1)
--- NOTE | 2016-12-01 08:54 | PDOC1 ---
History and Physical Date of Admission Date of Admission DATE: 12/01/16 TIME: 08:47 Identification/Chief Complaint Chief Complaint Abd pain Problems: Source Source: Patient History of Present Illness History of Present Illness 66 yo female with long history of abdominal pain. Has had EGD and colonoscopy with no source of pain. CT of the abdomen showed gallstones and small umbilical hernia. Past Medical History Cardiovascular: HTN, Hyperlipidemia Psych: Depression Musculoskeletal: Osteoarthritis Endocrine: Diabetes, Hypothyroidism Past Surgical History Past Surgical History: Tubal Ligation, No pertinent history (carpal tunnel release, rotor cuff repair) Family History Family History: Cancer, Diabetes, Heart Disease Social History ALCOHOL: none Drugs: None Current Medications Current Medications Current Medications Ondansetron HCl (Zofran) 4 mg PRN Q6HRS PRN IV NAUSEA/VOMITING; Start 12/01/16 at 07:00; Stop 12/02/16 at 06:59 Fentanyl Citrate (Fentanyl 2ml Vial) 25 mcg PRN Q5MIN PRN IV MILD PAIN; Start 12/01/16 at 07:00; Stop 12/02/16 at 06:59 Fentanyl Citrate (Fentanyl 2ml Vial) 50 mcg PRN Q5MIN PRN IV MODERATE PAIN; Start 12/01/16 at 07:00; Stop 12/02/16 at 06:59 Morphine Sulfate 1 mg PRN Q10MIN PRN IV SEVERE PAIN; Start 12/01/16 at 07:00; Stop 12/02/16 at 06:59 Ringer's Solution 1,000 ml @ 30 mls/hr Q24H IV Last administered on 12/01/16t 08:26; Start 12/01/16 at 07:00; Stop 12/01/16 at 18:59 Lidocaine HCl 2 ml PRN 1X PRN ID PRIOR TO IV START; Start 12/01/16 at 07:00; Stop 12/02/16 at 06:59 Hydromorphone HCl (Dilaudid) 0.5 mg PRN Q10MIN PRN IV SEV PAIN, Second choice; Start 12/01/16 at 07:00; Stop 12/02/16 at 06:59 Prochlorperazine Edisylate (Compazine) 5 mg PACU PRN PRN IV NAUSEA, MRX1; Start 12/01/16 at 07:00; Stop 12/02/16 at 06:59 Cefazolin Sodium/ Dextrose 50 ml @ 100 mls/hr 1X PREOP PRN IV PRIOR TO PROCEDURE; Start 12/01/16 at 06:00; Stop 12/01/16 at 18:00 Cellulose 1 each STK-MED ONCE .ROUTE ; Start 12/01/16 at 07:15; Stop 12/01/16 at 07:16; Status DC Iohexol (Omnipaque 300 Mg/ml) 50 ml STK-MED ONCE .ROUTE ; Start 12/01/16 at 07: 15; Stop 12/01/16 at 07:16; Status DC Bupivacaine HCl/ Epinephrine Bitart (Marcaine-Epi 0.25%-1:214119) 50 ml STK-MED ONCE .ROUTE ; Start 12/01/16 at 07:15; Stop 12/01/16 at 07:16; Status DC Dexamethasone Sodium Phosphate (Decadron) 20 mg STK-MED ONCE .ROUTE ; Start at 08:29; Stop 12/01/16 at 08:30; Status DC Propofol 20 ml @ As Directed STK-MED ONCE IV ; Start 12/01/16 at 08:29; Stop at 08:30; Status DC Lidocaine HCl (Lidocaine Pf 2% Vial) 5 ml STK-MED ONCE .ROUTE ; Start 12/01/16 at 08:29; Stop 12/01/16 at 08:30; Status DC Midazolam HCl (Versed) 2 mg STK-MED ONCE .ROUTE ; Start 12/01/16 at 08:29; Stop 12/01/16 at 08:30; Status DC Fentanyl Citrate (Fentanyl 2ml Vial) 100 mcg STK-MED ONCE .ROUTE ; Start at 08:29; Stop 12/01/16 at 08:30; Status DC Rocuronium [place] (Zemuron) 50 mg STK-MED ONCE .ROUTE ; Start 12/01/16 at 08:30 ; Stop 12/01/16 at 08:31; Status DC Active Scripts Active Reported Refresh Optive Eye Drops (Carboxymethylcellulos/Glycerin) 15 Ml Drops 1 Drop EACHEYE HS Lotemax (Loteprednol Etabonate) 5 Ml Drops.susp 1 Drop EACHEYE BID Losartan-Hctz 100-25 Mg Tab (Losartan/Hydrochlorothiazide) Unknown Strength Tablet Unknown Dose PO DAILY Toprol Xl (Metoprolol Succinate) 50 Mg Tab.er.24h 1 Tab PO BID Restasis (Cyclosporine) 1 Each Droperette 1 Drop EACHEYE BID Fish Oil ([place]-3 Fatty Acids) 500 Mg Capsule.dr 1,000 Mg PO DAILY Atorvastatin Calcium 40 Mg Tablet 20 Mg PO HS Levothyroxine Sodium 125 Mcg Tablet 125 Mcg PO DAILYAC Allergies Allergies: Coded Allergies: No Known Medication Allergies (Verified Allergy, Unknown, 12/01/16) niacin (Verified Adverse Reaction, Severe, TREMORS, 12/01/16) procaine (Verified Adverse Reaction, Severe, GUMS SWELLED AFTER DENTAL NOVOCAINE, 12/01/16) ROS Gastrointestinal: Yes Abdominal Pain Physical Exam General: Alert, Oriented X3, Cooperative, No acute distress HEENT: Atraumatic, PERRLA, EOMI Lungs: Clear to auscultation, Normal air movement Heart: RRR, no murmurs Abdomen: Normal bowel sounds, Soft, Other (TTP RUQ) Extremities: No clubbing, No cyanosis, No edema Skin: No significant lesion Neuro: Normal speech Psych/Mental Status: Mental status NL Vitals Vitals Vital Signs Date Time Temp Pulse Resp B/P (MAP) Pulse Ox O2 Delivery O2 Flow Rate FiO2 12/01/16 08:11 97.3 58 18 144/84 99 Room Air 97.3 Labs Labs Laboratory Tests Test 12/01/16 08:15 12/01/16 08:17 Prothrombin Time 15.0 SEC (11.7-14.0) Prothromb Time International Ratio 1.3 (0.8-1.1) Glucose (Fingerstick) 114 mg/dL (70-99) Laboratory Tests Test 12/01/16 08:15 12/01/16 08:17 Prothrombin Time 15.0 SEC (11.7-14.0) Prothromb Time International Ratio 1.3 (0.8-1.1) Glucose (Fingerstick) 114 mg/dL (70-99) Images Images as in HPI VTE Prophylaxis Ordered VTE Prophylaxis Devices: Yes VTE Pharmacological Prophylaxi: Contraindicated Assessment/Plan Assessment/Plan Cholecystitis and umbilical hernia plan L/S Cholecystectomy and umbo hernia repair. RYAN CHAVARRIA MD Dec 01, 2016 08:54
[2016-12-01] MEDS ORDERED: BUPIVACAINE MPF 0.25% 30 ML VIAL. ONE (09:11)
[2016-12-01] MEDS ORDERED: EPINEPHrine 1 MG/ML VIAL ONE (09:11)
[2016-12-01] MEDS ORDERED: ePHEDrine PF IN SALINE 50 MG/5 ML DISP.SYRIN IV ONE (09:21)
[2016-12-01] MEDS ORDERED: NEOSTIGMINE METHYLSULFATE 5 MG/5 ML SYRINGE. ONE (09:23)
[2016-12-01] MEDS ORDERED: ONDANSETRON PF 4 MG/2 ML VIAL. ONE (09:23)
[2016-12-01] MEDS ORDERED: GLYCOPYRROLATE 1 MG/5 ML VIAL. ONE (09:23)
[2016-12-01] MEDS ORDERED: DESFLURANE 61 TO 120 MINUTES IH ONE (09:45)
[2016-12-01] MEDS ORDERED: oxyCODONE/APAP 5/325 1 TAB TABLET PO PRN ×2 (10:15)
[2016-12-01] MEDS ORDERED: 0.9 % SODIUM CHLORIDE 10 ML DISP.SYRIN. IV PRN (10:15)
--- NOTE | 2016-12-01 10:19 | PDOC4 ---
Operative Note Operative Note Date: 12/01/2016 Preoperative diagnosis: Cholecystitis Operative diagnosis: Same Procedure: Laparoscopic cholecystectomy Surgeon: Jt Dictation: Patient is a 66-year-old female with several months history of right upper quadrant abdominal pain nausea especially after eating. CT scan of the abdomen showed gallstones and mildly thickened gallbladder wall. Procedure of laparoscopic cholecystectomy was explained to the patient in detail all risks benefits were discussed including bleeding infection injury to intra-abdominal contents possibly necessitating open operation alternatives to this procedure also discussed with the patient seemed understanding gave both verbal and written consent have procedure performed. Patient was taken to the operating room placed supine position general anesthesia was initiated once patient was asleep and intubated her abdomen was prepped and draped in the usual sterile fashion using ChloraPrep. An area in the left upper quadrant of the abdomen was injected with quarter percent Marcaine with epinephrine and incision was made with 11 blade scalpel and a Visiport was placed under direct visualization a pneumoperitoneum was achieved. Was noted that she had some adhesions near the umbilicus and the anterior abdomin these were taken down with sharp dissection. 35 mm ports were then placed under direct visualization two in the right upper quadrant and one in the epigastrium an 11 mm port was placed at the umbilicus under direct visualization. Was noted the gallbladder had quite a few adhesions to the omentum and these were taken down with blunt dissection the dome of the gallbladder was then grasped retracted cephalad the infundibulum of the gallbladder was grasped retracted laterally exposing the triangle. The adherent tissues at the triangle were taken down with blunt dissection exposing the cystic duct and cystic artery both were doubly clipped and transected and the gallbladder was taken off the liver with hook electrocautery. The gallbladder was placed in Endo Catch bag and removed from the umbilicus right upper quadrant was irrigated and suctioned dry air was quite a bit of oozing from the liver bed and a piece of Surgicel was placed in the liver bed. Hemostasis was deemed to be appropriate and the pneumoperitoneum was reduced all ports were removed fascial defect at the umbilicus closed [id number] Vicryl suture and skin was approximated all port sites for septic Monocryl mass all Steri- Strips and Band-Aids were applied as dressing. Was noted that there is liver was quite rough consistent with cirrhosis. Patient was taken to recovery in stable condition all sponge instrument and needle counts listed as correct. Estimated blood loss 20 mL RYAN CHAVARRIA MD Dec 01, 2016 10:19
[2016-12-01] MEDS: IV DEXTROSE 5%-LACT RINGERS 1,000 ML IV SCH (13:00)
[2016-12-01] MEDS: glipiZIDE 5 MG TABLET PO SCH (16:30)
[2016-12-01] MEDS: INDOMETHACIN 25 MG CAPSULE. PO SCH (18:00)
[2016-12-01] MEDS ORDERED: SIMVASTATIN 40 MG TABLET. PO SCH (21:00)
--- NOTE | 2016-12-02 00:23 | ACF ---
Admission Forms Criteria ABDOMINAL PAIN Clinical Indications for Admission to Inpatient Care (Place 'X' for any and all applicable criteria): Admission is indicated for ANY ONE of the following(1)(2)(3)(4)(5): [X]I. Inpatient admission required rather than observation care (Also use Abdominal Pain: Observation Care, as appropriate) because of ANY ONE of the following: [ ]a) Severe pain requiring acute inpatient management [X]b) Identification of etiology/finding that requires inpatient care (eg, aortic dissection, free air) [ ]c) Absent bowel sounds with complete ileus(6) [ ]d) Suspected toxic megacolon [ ]e) Severe electrolyte abnormalities requiring inpatient care [ ]f) High fever or infection requiring inpatient admission as indicated by ANY ONE of following(7)(8): [ ] i) Appropriate outpatient or observational care antimicrobial treatment unavailable, not effective, or not feasible [ ] ii) Documented bacteremia [ ] iii) Temperature > 104.9 degrees F (oral) [ ] iv) T >103.1 F (oral) or < 96.8 F(rectal) that does not respond to all emergency treatment measures [ ]g) Signs of intestinal obstruction [B] [ ]h) Hemodynamic instability [ ]i) IV fluid to replace significant ongoing losses (greater than 3 L/m2 per day) (12)(13) [ ]j) Percutaneous or open drainage (eg, abscess, biliary tract ) procedures [ ]k) Parenteral nutrition regimen that must be implemented on inpatient basis [ ]l) Other condition,treatment or monitoring requiring inpatient admission. [ ]II. Peritoneal signs present [ ]III. Surgery needed that cannot be performed on an ambulatory basis. [ ]IV. Evaluation requires patient to not eat or drink for extended period ( eg, more than 24 hours). [ ]V. Contraindications and/or Inappropriate clinical situations for Observational Care in patients with abdominal pain, when ANY ONE of the following is required: [ ]a) Thorough evaluation is required to prevent catastrophic events due to delays in diagnosing (e.g.Mesenteric ischemia) 1,3 [ ]b) Patient with severe pathology or with chronic symptoms unlikely to improve in the ED stay (3) [ ]. General contraindications and/or Inappropriate clinical situations for Observational Care in patients with abdominal pain, when ANY ONE of the following is required: [ ]a) Prediction of prolongation of LOS based on ANY ONE of the following may be considered as a contraindication for observational care 2, 3, 4, 5, 6, 7, 8, 9, 10, 11 [ ]i) Age > 65 yrs. [ ]ii) Patient arriving by ambulance [ ]iii) Patient with high acuity [ ]iv) Patient requiring vital sign monitoring [ ]v) Patient on IV medication [ ]b) Systolic blood pressures 180mmHg 3,12 [ ]c) Patient with altered mental status including delirium and other alteration of consciousness, (3) [ ]d) Patient whose discharge disposition will be to a care home home or rehabilitation home should not be managed in Emergency Department Observation Unit. CMS rule requires 3 days hospital stay before such placement.3,13 [ ]e) Patient with failure to thrive due to broad array of etiologies 3,16,17 [ ]f) Inability to ambulate 3,14 Extended stay beyond goal length of stay may be needed for(2)(3): [ ]a) Persistent abdominal pain with suspected intra-abdominal process [ ]b) Diagnosed condition requiring continued stay (e.g., pancreatitis, complicated diverticulitis) [ ]c) Surgery (e.g., colectomy) The original [facility] content created by [employer] has been revised. The portions of the content which have been revised are identified through the use of italic text or in bold, and [facility] has neither reviewed nor approved the modified material.All other unmodified content is copyright [facility]. Please see references footnoted in the original [facility] edition 2016 Admission Criteria Met?: Yes OLVIN JAEGER Dec 02, 2016 00:23
[2016-12-02] MEDS: IV DEXTROSE 5%-LACT RINGERS 1,000 ML IV SCH (02:20)
[2016-12-02 03:15] VITALS: BP 131/59
[2016-12-02 07:00] VITALS: BP 129/58
[2016-12-02] MEDS ORDERED: LEVOTHYROXINE 175 MCG TABLET PO SCH (07:00)
[2016-12-02] MEDS: INDOMETHACIN 25 MG CAPSULE. PO SCH ×2 (08:15→13:00)
[2016-12-02] MEDS: glipiZIDE 5 MG TABLET PO SCH (08:15)
[2016-12-02] MEDS ORDERED: MELOXICAM 7.5 MG TABLET PO SCH (09:00)
[2016-12-02] MEDS ORDERED: LISINOPRIL 40 MG TABLET. PO SCH (09:00)
[2016-12-02] MEDS ORDERED: FUROSEMIDE 40 MG TABLET. PO SCH (09:00)
--- NOTE | 2016-12-02 09:23 | PDOC ---
SURGICAL PROGRESS NOTE Subjective Doing well, tolerating diet Vital Signs Vital Signs Date Time Temp Pulse Resp B/P (MAP) Pulse Ox O2 Delivery O2 Flow Rate FiO2 12/02/16 07:00 97.5 76 18 129/58 (81) 92 Room Air 97.5 12/01/16 16:47 2.0 I&O Intake and Output 12/02/16 07:00 Intake Total 1160 ml Output Total 20 ml Balance 1140 ml Intake Oral 210 ml IV Total 950 ml Output Urine Total 0 ml Estimated Blood Loss 20 ml # Voids 3 PATIENT HAS A VILLANUEVA: No General: Alert, Oriented X3, Cooperative, mild distress Abdomen: Normal bowel sounds, Soft, Other (Wounds c/d/i mild RUQ tenderness) Labs Laboratory Tests Test 12/01/16 08:15 12/01/16 08:17 12/01/16 10:22 Prothrombin Time 15.0 SEC (11.7-14.0) Prothromb Time International Ratio 1.3 (0.8-1.1) Glucose (Fingerstick) 114 mg/dL (70-99) 128 mg/dL (70-99) Laboratory Tests Test 12/01/16 10:22 Glucose (Fingerstick) 128 mg/dL (70-99) Assessment/Plan S/P L/S Cholecystecomy D/C home Problems: RYAN CHAVARRIA MD Dec 02, 2016 09:23
--- NOTE | 2016-12-02 09:25 | DISCH ---
DISCHARGE INSTRUCTIONS Condition on Discharge Condition on Discharge: Stable Activity After Discharge Activity Instructions for Disc: Avoid exertion Other activity instructions: No lifting >20lbs for 2 weeks Diet after Discharge Diet after Discharge: Low Fat Wound Incision Care Other wound/incision instructi: Calista delcid starting today Contacting the after DC Call your doctor for: If your condition worsens Follow-Up Follow up with: Dr Chavarria in 2 weeks RYAN CHAVARRIA MD Dec 02, 2016 09:25
--- NOTE | 2016-12-02 09:29 | PDOC3 ---
Discharge Summary [facility] Date of Admission: Dec 01, 2016 Discharge Date: Dec 02, 2016 Admitting Diagnosis Chronic cholecystitis Problems: Final Diagnosis Same CONSULTS None Procedures L/S Cholecystectomy Brief Hospital Course Ms. Bliss is a 66 old female who underwent L/S cholecystectomy without problems. Tolerating diet and is D/C'd home in stable condition. Patient History: Family history: Cardiovascular disease (situation) G8 BROTHER, Onset:60 years & older G8 BROTHER, Onset:60 years & older G8 BROTHER, Onset:60 years & older G8 BROTHER, , Age:60 years and older G8 DAUGHTER, Onset:40's - 50 (heart palpatations) Family history: Diabetes mellitus (situation) G8 BROTHER, Onset:40's - 50 G8 BROTHER, Onset:40's - 50 G8 BROTHER, Onset:40's - 50 G8 BROTHER, , Age:60 years and older, Onset:40's - 50 G8 DAUGHTER, Onset:15's - 20 Family history: Hemophilia (situation) G8 BROTHER, Onset:Childhood Family history: Hypertension (situation) G8 BROTHER, , Age:50's - 60, Onset:30's - 40 G8 BROTHER, Onset:30's - 40 G8 BROTHER, Onset:30's - 40 G8 BROTHER, Onset:30's - 40 G8 BROTHER, , Age:60 years and older, Onset:30's - 40 Family history: neoplasm - trachea/bronchus/lung (situation) G8 SISTER, , Age:60 years and older, Onset:50's - 60 Sleep apnea G8 DAUGHTER, Onset:40's - 50 Problems: Disposition Stable CONDITION AT DISCHARGE: Improved, Stable Scheduled Atorvastatin Calcium (Atorvastatin Calcium), 20 MG PO HS, (Reported) Carboxymethylcellulos/Glycerin (Refresh Optive Eye Drops), 1 DROP EACHEYE HS, ( Reported) Cyclosporine (Restasis), 1 DROP EACHEYE BID, (Reported) Levothyroxine Sodium (Levothyroxine Sodium), 125 MCG PO DAILYAC, (Reported) Losartan/Hydrochlorothiazide (Losartan-Hctz 100-25 Mg Tab), Unknown Dose PO DAILY, (Reported) Loteprednol Etabonate (Lotemax), 1 DROP EACHEYE BID, (Reported) Metoprolol Succinate (Toprol Xl), 1 TAB PO BID, (Reported) [place]-3 Fatty Acids (Fish Oil), 1,000 MG PO DAILY, (Reported) Follow Up Dr Chavarria in 2 weeks Patient Instructions No lifting >20lbs for 2 weeks Low fat diet for 2 weeks RYAN CHAVARRIA MD Dec 02, 2016 09:29
[2016-12-02 11:00] VITALS: BP 117/57
[2016-12-02 15:00] VITALS: BP 153/70
--- NOTE | 2016-12-02 16:06 | PATHOLOGY ---
PATHOLOGY REPORT * * * * * * * * FINAL DIAGNOSIS: Gallbladder, laparoscopic cholecystectomy: - Cholelithiasis. - Chronic cholecystitis. COMMENT: There is no evidence of malignancy. (JPM:mgr; 12/02/2016) REPORT ELECTRONICALLY SIGNED BY: Moses Mason M.D. DATE/TIME: 12/02/2016 16:05 * * * * * * * * GROSS PATHOLOGY: Received in formalin labeled "Reta Batres, gallbladder and contents," is an 8.4 x 3.0 x 2.2 cm, intact gallbladder with purple valentine serosal surfaces. Opening the gallbladder reveals peterson brown, velvety mucosa and an average wall thickness of 0.3 cm. Calculi are present and no masses are noted grossly. [employer] sections from the body and fundus are submitted along with the proximal margin in cassette A1. (JPM; 12/01/16) INITIAL CPT CODE(S): A; 64971 Professional services performed [email or web address] [address] Technical services performed by [facility] at [address] [place] [address]. SPECIMEN(S) RECEIVED: A.Gallbladder and its contents CLINICAL HISTORY: Cholecystitis and umbilical hernia repair PATIENT: RETA BATRES /AGE: 610/19/1950 (Age: 66) PATIENT #: [id number] ALT CASE #: SPECIMEN COLLECTION DATE: 12/01/2016 SPECIMEN RECEIVED DATE: 12/01/2016 [facility] - [address] [place] [address] - PHONE: [phone] * * * END OF REPORT * * *
== END 2016-12-02 15:30 | disposition home or self-care (01) | DRG 419 ==
LOC: OPSVCIP 05:44 → 4 NORTH 11:25
PROVIDERS: ADMIT Surgery; ATTEND Surgery
PROC: 0WQF4ZZ Repair Abdominal Wall, Percutaneous Endoscopic Approach (ICD-10-PCS; 2016-12-01)
PROC: 0FT44ZZ Resection of Gallbladder, Percutaneous Endoscopic Approach (ICD-10-PCS; principal; 2016-12-01 10:00)
DX: K80.10 Calculus of gallbladder with chronic cholecystitis without obstruction (principal); I10 Essential (primary) hypertension; E78.5 Hyperlipidemia, unspecified; E11.9 Type 2 diabetes mellitus without complications; E03.9 Hypothyroidism, unspecified; M19.90 Unspecified osteoarthritis, unspecified site; K42.9 Umbilical hernia without obstruction or gangrene; Z79.899 Other long term (current) drug therapy; Z79.1 Long term (current) use of non-steroidal anti-inflammatories (NSAID); Z82.49 Family history of ischemic heart disease and other diseases of the circulatory system; Z83.3 Family history of diabetes mellitus; Z88.8 Allergy status to other drugs, medicaments and biological substances
CPT/HCPCS: 36415; 82962; 85610; 88304; A4215; J0171; J0690; J1100; J2001; J2250; J2270; J2405; J2704; J2710; J3010; J3490; J7030; J7120; Q9967; A6539